=== PATIENT | female | born 2000 | race Caucasian/White ===

== ENCOUNTER 2022-10-22 12:13 | Emergency (ER) | payer BC, SELFPAY ==
[2022-10-22 12:31] VITALS: BP 129/74; PULSE 98; RESP 16; TEMP 36.9; O2SAT 99
--- NOTE | 2022-10-22 13:09 | ED.URI ---
HPI - URI/Sore Throat General Chief Complaint: Upper Respiratory Infection Stated Complaint: Runny Nose/Chills Time Seen by Provider: 10/22/22 13:09 Source: patient and RN notes reviewed Mode of arrival: ambulatory Limitations: no limitations History of Present Illness HPI Narrative: 22-year-old female presented for complaints of sinus pressure, congestion, sore throat and body aches over the last 2 days. She had negative COVID test at home today. She denies shortness of breath, wheezing, nausea, vomiting, diarrhea. Related Data Home Medications Medication Instructions Recorded Confirmed No Home Medications 10/22/22 10/22/22 Allergies Allergy/AdvReac Type Severity Reaction Status Date / Time No Known Allergies Allergy Verified 10/22/22 12:58 Review of Systems Review of Systems: ROS per HPI Exam Narrative: GENERAL: Ill-appearing, nontoxic EYES: PERRLA, conjunctivae clear ENT: Mucous membranes moist. TMs pearly miller with dull light reflex bilaterally; no tragal tenderness. Oropharynx erythematous without lesions or exudate, no drooling, no hoarseness, no trismus, uvula midline. NECK: Supple. No lymphadenopathy CHEST: Clear to auscultation, breath sounds equal. HEART: Regular rate and rhythm. No murmur heard. SKIN: Warm, dry, no rash. NEURO: Alert and oriented x3. PSYCH: Normal mood and affect Course Course Emergency Course: Patient is aware of diagnosis, understands and agrees to treatment plan. Anticipatory guidance given. Patient agrees to follow-up as directed and is aware of reasons to seek care at the emergency department. Portions of this record may have been created with voice recognition software Level of Care: Express Care Visit Vital Signs Vital signs: Vital Signs Temperature 98.4 F 10/22/22 12:31 Pulse Rate 98 10/22/22 12:31 Respiratory Rate 16 10/22/22 12:31 Blood Pressure 129/74 10/22/22 12:31 Pulse Oximetry 99 10/22/22 12:31 Oxygen Delivery Room Air 10/22/22 12:31 Temperature 98.4 F 10/22/22 12:31 Pulse Rate 98 10/22/22 12:31 Respiratory Rate 16 10/22/22 12:31 Blood Pressure 129/74 10/22/22 12:31 Pulse Oximetry 99 10/22/22 12:31 Oxygen Delivery Room Air 10/22/22 12:31 reviewed MDM - URI/Sore Throat MDM Narrative Medical decision making narrative: flu negative. Results reviewed with patient. Advised supportive measures and signs/symptoms to go to the ER. Pt is appropriate for outpt treatment and f/u. Differential Diagnosis Differential diagnosis: Likely upper respiratory infection, sinusitis and viral infection Discharge Plan Discharge Clinical Impression: Viral infection Patient Disposition: Home, Self-Care Condition: Stable Instructions: Viral Syndrome (ED) Additional Instructions: Recommend Flonase spray and Zyrtec (or Claritin/Nazanin) over the counter Cough syrup may cause drowsiness; avoid driving or take it at night time. Tylenol 1000mg every 8 hours as needed for pain Symptomatic treatment includes: rest, fluids, and increase humidity of the air at home. Follow up with your primary care provider in 1 week. Go to the ER for worsening symptoms or concerns. Prescriptions: No Action No Home Medications Follow-up/Referrals: PHYSICIAN,BUSINESS SERVICES INTERN [Primary Care Provider] - Stand Alone Forms: Work/School Release IP Time of Disposition: 13:15
== END 2022-10-22 13:29 | disposition home or self-care (01) ==
PROVIDERS: Emergency Provider Nurse Practitioner Family
DX: B34.9 Viral infection, unspecified (principal)
CPT/HCPCS: 87804; 99213; G0463